=== PATIENT | female | born 1995 | race African-American/Black ===

== ENCOUNTER 2022-03-03 10:46 | Emergency (ER) | payer SELFPAY ==
[2022-03-03] MEDS ORDERED: PROMETHAZINE INJ 25 MG/ML AMP ONE (11:17)
[2022-03-03] MEDS ORDERED: NA CHLORIDE 0.9% 1,000 ML ONE ×2 (11:17→12:21)
[2022-03-03 11:34] LABS: Absolute Lymphocytes (CBC) 1.1 K/uL (0.7-4.9); Hematocrit 36.2 % (36.0-45.0); Lymphocytes % 9.6 % (15.3-44.8); MCV 88.9 fL (80-100); MPV 7.7 fL (7.6-11.3); RBC Red Blood Cell Count 4.07 M/uL (3.86-4.86)
[2022-03-03 12:03] LABS: Urine Blood Negative (Negative); Urine Glucose Negative (Negative); Urine Protein 2+ (Negative); Urine pH 7.5 (5.0-7.0)
[2022-03-03 12:05] LABS: Potassium 3.3 mmol/L (3.5-5.1)
--- NOTE | 2022-03-03 12:29 | ER ---
Nurse's Notes [facility] Name: Salma Alvares Age: 26 yrs Sex: Female : 1995 Arrival Date: 03/03/2022 Time: 10:49 Bed 15 Private MD: Diagnosis: Vomiting of , unspecified Presentation: 03/03 11:03 Chief complaint: Patient states: 8 weeks , N/V for 1 week. Slight diarrhea. ll1 Coronavirus screen: Vaccine status: Patient reports receiving the 2nd dose of the covid vaccine. Client denies travel out of the [place] in the last 14 days. At this time, the client does not indicate any symptoms associated with coronavirus-19. Ebola Screen: Patient denies travel to an Ebola-affected area in the 21 days before illness onset. Initial Sepsis Screen: Does the patient meet any 2 criteria? No. Patient's initial sepsis screen is negative. Does the patient have a suspected source of infection? No. Patient's initial sepsis screen is negative. Risk Assessment: Do you want to hurt yourself or someone else? Patient reports no desire to harm self or others. Onset of symptoms was February 24, 2022. 11:03 Method Of Arrival: Ambulatory ll1 11:03 Acuity: STACEY 3 ll1 Triage Assessment: 11:04 General: Appears ill, Behavior is cooperative, appropriate for age. General: 8 weeks ll1 , . LMP 01/05/22. Pain: Denies pain. GI: Reports diarrhea, nausea, vomiting. 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 - Social history:: Smoking status: Patient denies any tobacco usage or history of. Screenin:45 Abuse screen: Denies threats or abuse. Nutritional screening: Has had N/V for 3 or more vg1 days. Tuberculosis screening: No symptoms or risk factors identified. Fall Risk No fall in past 12 months (0 pts). No secondary diagnosis (0 pts). IV access (20 points). Ambulatory Aid- None/Bed Rest/Nurse Assist (0 pts). Gait- Normal/Bed Rest/Wheelchair (0 pts) Mental Status- Oriented to own ability (0 pts). Total Dominguez Fall Scale indicates No Risk (0-24 pts). Assessment: 11:45 General: Appears in no apparent distress. comfortable, Behavior is calm, cooperative. vg1 Pain: Denies pain. Neuro: Level of Consciousness is awake, alert, obeys commands, Oriented to person, place, time, situation. Cardiovascular: Patient's skin is warm and dry. Respiratory: Airway is patent Respiratory effort is even, unlabored. GI: Abdomen is flat, non-distended, Abd is soft and non tender X 4 quads. : Urine is cloudy. EENT: No signs and/or symptoms were reported regarding the EENT system. Derm: Skin Skin is pink, warm \T\ dry. Musculoskeletal: Circulation, motion, and sensation intact. 12:25 Reassessment: Patient appears in no apparent distress at this time. Patient and/or vg1 family updated on plan of care and expected duration. Pain level reassessed. Patient is alert, oriented x 3, equal unlabored respirations, skin warm/dry/pink. 12:32 Reassessment: pt up for d/c currently waiting for IV fluids to complete. vg1 12:45 Reassessment: PT stated she was able to tolerate oral fluids. tp1 Vital Signs: 11:03 BP 127 / 70; Pulse 84; Resp 15; Temp 99.0; Pulse Ox 97% on R/A; Weight 52.16 kg; Height ll1 5 ft. 8 in. (172.72 cm); Pain 0/10; 12:25 BP 104 / 66; Pulse 65; Resp 15; Pulse Ox 98% ; vg1 11:03 Body Mass Index 17.49 (52.16 kg, 172.72 cm) ll1 ED Course: 10:49 Patient arrived in ED. rg4 10:53 [facility]zm[facility]C [facility] kb 10:53 Ross Layne DO is Attending Physician. kb 11:05 Triage completed. ll1 11:05 Arm band placed on Patient placed in an exam room, on a stretcher. ll1 11:15 Inserted saline lock: 22 gauge in right antecubital area, using aseptic technique. ll1 Blood collected. 11:28 Elizabeth Lovett, RN is Primary Nurse. vg1 11:45 Patient has correct armband on for positive identification. Bed in low position. Call vg1 light in reach. Side rails up X 1. Adult w/ patient. 11:45 No provider procedures requiring assistance completed. vg1 12:46 IV discontinued, intact, bleeding controlled, No redness/swelling at site. Pressure tp1 dressing applied. Administered Medications: 11:28 Drug: NS 0.9% 1000 ml Route: IV; Rate: 1000 ml; Site: right antecubital; kr3 12:46 Follow up: IV Status: Completed infusion; IV Intake: 1000ml tp1 11:28 Drug: Phenergan (promethazine) 6.25 mg Route: IVP; Site: right antecubital; kr3 12:06 Follow up: Response: No adverse reaction; Nausea is decreased vg1 12:24 Drug: NS 0.9% 1000 ml Route: IV; Rate: 1000 ml; Site: right antecubital; vg1 12:45 Follow up: IV Status: Completed infusion; IV Intake: 350ml vg1 Medication: 11:45 VIS not applicable for this client. vg1 Intake: 12:45 IV: 350ml; Total: 350ml. vg1 12:46 IV: 1000ml; Total: 1350ml. tp1 Outcome: 12:28 Discharge ordered by . kb 12:47 Discharged to home tp1 12:47 Condition: good 12:47 Discharge instructions given to patient, Instructed on discharge instructions, follow up and referral plans. medication usage, Demonstrated understanding of instructions, follow-up care, medications, Prescriptions given X 1. 12:47 Patient left the ED. tp1 Signatures: Lety Guzmán, MACHINE WOODWORKING SANDER-C MACHINE WOODWORKING SANDER-Kelli Mccoy rg4 Elizabeth Lovett, RN RN vg1 Miguel Angel Guaman RN RN ll1 Kim Hogue, KEENAN HUSSEIN tp1 Rosa Machado RN RN kr3
--- NOTE | 2022-03-03 12:29 | EDPHYS ---
Physician Documentation [facility] Name: Salma Alvares Age: 26 yrs Sex: Female : 1995 Arrival Date: 03/03/2022 Time: 10:49 Bed 15 Private MD: ED Physician Ross Layne HPI: 03/03 11:26 This 26 yrs old Black Female presents to ER via Ambulatory with complaints of Vomiting. kb 11:26 The patient presents to the emergency department with nausea and vomiting, that started kb 7 day(s) ago. The estimated gestational age is 8 weeks. course: care: at a clinic, Leakage of Fluid: none appreciated, Ultrasound: the patient had an ultrasound. Previous pregnancies: the patient has never been . Associated signs and symptoms: Pertinent positives: nausea, vomiting, Pertinent negatives: abdominal pain, vaginal bleeding. The patient has not experienced similar symptoms in the past. The patient has not recently seen a physician. Pt reports she is approx 8 weeks and has had nausea and vomiting all week. States she is unable to tolerate po intake. 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 - Social history:: Smoking status: Patient denies any tobacco usage or history of. ROS: 11:27 Constitutional: Negative for fever, chills, and weight loss. kb 11:27 Abdomen/GI: Positive for nausea and vomiting, Negative for abdominal pain, diarrhea, constipation, abdominal cramps. 11:27 All other systems are negative. Exam: 11:27 Constitutional: This is a well developed, well nourished patient who is awake, alert, kb and in no acute distress. Head/Face: Normocephalic, atraumatic. ENT: Moist Mucous membranes Cardiovascular: Regular rate and rhythm with a normal S1 and S2. No gallops, murmurs, or rubs. No pulse deficits. Respiratory: Respirations even and unlabored. No increased work of breathing. Talking in full sentences Abdomen/GI: Soft, non-tender. No distention Skin: Warm, dry with normal turgor. Normal color. MS/ Extremity: Pulses equal, no cyanosis. Neurovascular intact. Full, normal range of motion. Neuro: Awake and alert, GCS 15, oriented to person, place, time, and situation. Moves all extremities. Normal gait. Vital Signs: 11:03 BP 127 / 70; Pulse 84; Resp 15; Temp 99.0; Pulse Ox 97% on R/A; Weight 52.16 kg; Height ll1 5 ft. 8 in. (172.72 cm); Pain 0/10; 12:25 BP 104 / 66; Pulse 65; Resp 15; Pulse Ox 98% ; vg1 11:03 Body Mass Index 17.49 (52.16 kg, 172.72 cm) ll1 MDM: 11:03 Patient medically screened. kb 11:28 Data reviewed: vital signs, nurses notes. Data interpreted: Pulse oximetry: on room air kb is 97 %. Interpretation: normal. Counseling: I had a detailed discussion with the patient and/or guardian regarding: the historical points, exam findings, and any diagnostic results supporting the discharge/admit diagnosis, lab results, the need for outpatient follow up, an OB/Gyne specialist, to return to the emergency department if symptoms worsen or persist or if there are any questions or concerns that arise at home. 03/03 11:03 Order name: CBC with Diff; Complete Time: 11:50 kb 03/03 11:03 Order name: Basic Metabolic Panel; Complete Time: 12:14 kb 03/03 12:03 Order name: Urine Dipstick-Ancillary; Complete Time: 12:14 EDMS 03/03 12:03 Order name: Urine Culture kj1 03/03 12:03 Order name: Urine Microscopic Only kj1 03/03 11:03 Order name: IV Start; Complete Time: 11:21 kb 03/03 11: Order name: Urine Dipstick-Ancillary (obtain specimen); Complete Time: 12:04 kb 03/03 12:20 Order name: PO challenge; Complete Time: 12:45 kb Administered Medications: : Drug: NS 0.9% 1000 ml Route: IV; Rate: 1000 ml; Site: right antecubital; kr3 12:46 Follow up: IV Status: Completed infusion; IV Intake: 1000ml tp1 11:28 Drug: Phenergan (promethazine) 6.25 mg Route: IVP; Site: right antecubital; kr3 12:06 Follow up: Response: No adverse reaction; Nausea is decreased vg1 12:24 Drug: NS 0.9% 1000 ml Route: IV; Rate: 1000 ml; Site: right antecubital; vg1 12:45 Follow up: IV Status: Completed infusion; IV Intake: 350ml vg1 Disposition: 15:13 Co-signature as Attending Physician, Ross Layne DO I was immediately available on-site ms3 in the Emergency Department for consultation in the care of the patient. Disposition Summary: 03/03/22 12:28 Discharge Ordered Location: Home kb Condition: Stable kb Diagnosis - Vomiting of , unspecified kb Followup: kb - With: Emergency Department - When: As needed - Reason: Worsening of condition Followup: kb - With: Private Physician - When: 2 - 3 days - Reason: Recheck today's complaints, Continuance of care, Re-evaluation by your physician Discharge Instructions: - Discharge Summary Sheet kb - Morning Sickness, [id number] kb Forms: - Medication Reconciliation Form kb - Thank You Letter kb - Antibiotic Education kb - Prescription Opioid Use kb Prescriptions: - Diclegis 10-10 mg Oral tablet,delayed release (DR/EC) - take 1 tablet by ORAL route once daily As needed; 10 tablet; Refills: 0, kb Product Selection Permitted Addendum: 03/08/2022 13:16 Addendum: Macrobid 100mg PO BID called in to [facility] for UTI. van b Signatures: Dispatcher [employer] Lety Kilpatrick, PAULA-Akanksha SHANKSP-Elizabeth Mccoy, RN RN vg1 Miguel Angel Guaman, RN RN ll1 Ross Layne DO DO ms3 Rosa Machado RN RN kr3 Kim Hogue RN tp1
[2022-03-03 13:07] LABS: Urine Bacteria >50 /HPF (<20); Urine Mucus 4+ /HPF (None Seen); Urine RBC <5 /HPF (None Seen)
[2022-03-03 13:13] VITALS: TEMP 99
[2022-03-03 13:14] VITALS: BP 104/66; O2SAT 98
== END 2022-03-03 12:47 | disposition home or self-care (01) ==
LOC: ER 10:46
DX: O21.9 Vomiting of pregnancy, unspecified (principal); Z3A.08 8 weeks gestation of pregnancy
CPT/HCPCS: 36415; 80048; 81003; 81015; 85025; 87077; 87086; 87088; 87186; 96361; 96374; 99284; J2550; J7030